=== PATIENT | male | born 2000 | race Caucasian/White ===

== ENCOUNTER 2021-06-20 16:48 | Emergency (ER) | payer OTHER, SELFPAY ==
[2021-06-20 16:49] VITALS: BP 149/74; PULSE 103; RESP 16; TEMP 36.1; O2SAT 95; BMI 29.5
--- NOTE | 2021-06-20 18:30 | EKG12_ITS ---
Test Reason : CP Blood Pressure : / mmHG Vent. Rate : 107 BPM Atrial Rate : 107 BPM P-R Int : 126 ms QRS Dur : 080 ms QT Int : 338 ms P-R-T Axes : 027 007 033 degrees QTc Int : 451 ms Sinus tachycardia Nonspecific T wave abnormality Confirmed by REBECCA JOSHUA, IRENE ([id number]), newspaper or periodical editor AMBER YORK ([id number]) on 06/22/2021 11:07:11 AM Referred By: DAVID/EITAN Confirmed By:IRENE FERNANDEZ MD
--- NOTE | 2021-06-20 18:44 | EX.ED.DYSGE1 ---
HPI History of Present Illness Chief Complaint: Palpitations Informant: patient Onset/Context/Timing Onset: Today Narrative Narrative: Patient presents secondary to feeling like his heart is being squeezed and shortness of breath. He had intermittent symptoms throughout the day, but states that started around 11 AM and resolved while he was sitting in the waiting room waiting to be evaluated. Nursing documents intermittent fast heart rate but he denies that to me. He is also concerned about a lump in his left axilla that he has noted over the last 2 weeks and is concerned he may have cancer. [facility] Medical History Anxiety and depression Allergy/AdvReac Type Severity Reaction Status Date / Time No Known Allergies Allergy Verified 06/20/21 16:51 Social History Smoking Status: Never smoker ROS ROS ED Constitutional Constitutional ED: Denies chills or fever(s) Eyes Eyes: Denies change in vision ENT ENT ED: Denies sore throat Cardiovascular Cardiovascular: Reports chest pain; Denies racing heartbeat Respiratory/Chest Respiratory/Chest: Reports dyspnea; Denies cough Gastrointestinal Gastrointestinal: Denies abdominal pain, nausea or vomiting Genitourinary Genitourinary ED: Denies dysuria Musculoskeletal Musculoskeletal: Reports myalgias; Denies back pain Integumentary Denies rash Neurologic Neurologic: Denies headache(s) or weakness Allergic/Immunologic Allergic/Immunologic ED: Denies urticaria EXAM Physical Exam Const Vital Signs: 06/20/21 16:49 06/20/21 18:47 06/20/21 20:41 Temperature 96.9 F L Temperature Source Temporal Pulse Rate 103 H 93 Respiratory Rate 16 16 Respiratory Effort Normal Blood Pressure 149/74 H 139/89 H Blood Pressure Mean 99 Pulse Ox 95 98 Oxygen Delivery Method Room Air Positive well nourished and well developed General Appearance ED: well developed HEENT Reports moist mucous membranes Eyes PERRL and EOMs intact bilaterally Neck supple Chest Wall inspection of chest normal and palpation of chest normal Resp normal respiratory effort and clear to auscultation bilaterally Cardio regular rate and regular rhythm GI normal to inspection, nondistended, normoactive bowel sounds and non-tender Palpation: soft Extremity Extremity Narrative: Small nodule noted in the left axilla that feels like a clogged oil gland, potentially a forming abscess. No overlying skin change. Neuro oriented x3 Sensorium / Orientation: alert Psych mental status grossly normal Skin no rashes or lesions noted MDM MDM MDM Narrative Medical decision making narrative: EKG, chest x-ray, lab work obtained. Lab Data Attestation: I reviewed the patient's lab results. Labs: Laboratory Results - last 24 hr 06/20/21 06/20/21 18:45 18:45 WBC 7.8 RBC 5.23 Hgb 15.4 Hct 45.4 MCV 86.8 MCH 29.4 MCHC 33.9 RDW Std Deviation 38.5 RDW Coeff of Everardo 12.2 Plt Count 336 MPV 9.6 Immature Gran % (Auto) 0.400 Neut % (Auto) 62.6 Lymph % (Auto) 28.6 Taylor % (Auto) 6.8 Eos % (Auto) 1.0 Baso % (Auto) 0.6 Absolute Neuts (auto) 4.9 Absolute Lymphs (auto) 2.23 Nucleated RBC % 0 Sodium 140 Potassium 3.9 Chloride 106 Carbon Dioxide 27.0 Anion Gap 7 BUN 7 Creatinine 0.87 Estim Creat Clear Calc 136.57 Est GFR (MDRD) Af Amer 144 Est GFR (MDRD) Non-Af 119 BUN/Creatinine Ratio 8.0 L Glucose 88 Calcium 9.4 Troponin I High Sens 4 TSH 1.57 Radiography Chest X-Ray - ED: 1 View, Read by ED Physician, Normal, Heart, Lungs and Mediastinum Diagnostic Testing: Clinical Impression(s) from Imaging Studies Chest X-Ray 06/20/21 19:28 IMPRESSION: Nonacute portable x-ray examination of the chest. Electronically Signed: Michael Cope MD (Brooks) at 19:38 EDT Reading Location ID and State: [facility] / [place] , Service support , EKG Initial EKG: Attestation: I personally reviewed and interpreted this EKG as follows: Interpretation: Sinus Tachycardia (Sinus tach at 107 with no acute ischemia.) Treatment and Re-Evaluation Narrative: Repeat evaluation patient continues to feel improved with no chest pressure or shortness of breath at this time. Lab work reviewed with him and unremarkable. Chest x-ray normal per my interpretation. Return instructions provided. Discharge Plan Triage Chief Complaint: Palpitations ED Provider: Alberta Osorio Dx/Rx/DC Orders Clinical Impression: Atypical chest pain Instructions: ED Chest Pain, Noncardiac Primary Care Provider: Care Physician,No Primary Referrals: [facility] [GROUP OF PHYSICIANS] - As Needed Care Physician,No Primary [Primary Care Provider] - Disposition Disposition: Home, Self Care Discharge Date/Time: 06/20/21 20:42
[2021-06-20 19:01] LABS: Absolute Lymphocyte Count 2.23 X10^3/uL (0.83-4.51); Absolute Neutrophil Count 4.9 X10^3/uL (2.0-7.7); Basophil# 0.05 X10^3/uL; Basophil% 0.6 % (0-1); Eosinophil# 0.08 X10^3/uL; Hematocrit 45.4 % (40-54); Hemoglobin 15.4 g/dL (13.0-16.5); Lymphocyte # 2.23 X10^3/ul (0.83-4.51); Lymphocyte % 28.6 % (19-41); Mean Corp Hgb Conc 33.9 g/dL (32-36); Mean Corpuscular Hgb 29.4 pg (27.0-32.0); Mean Corpuscular Volume 86.8 fL (80-94); Mean Platelet Vol. 9.6 fl (6.2-12.0); Monocyte# 0.53 X10^3/uL; Monocyte% 6.8 % (0-10); NRBC Flagged by Analyzer 0 % (0-5); Neutrophil # 4.88 X10^3/uL (2.7-7.7); Neutrophil % 62.6 % (47-70); Platelet Count 336 K/mm3 (150-450); RBC Distribution Width CV 12.2 % (11.6-14.6); RBC Distribution Width SD 38.5 fl (35.1-43.9); Red Blood Count 5.23 M/mm3 (4.6-6.2); White Blood Count 7.8 K/mm3 (4.4-11.0)
[2021-06-20 19:27] LABS: Anion Gap 7 (5-15); BUN 7 mg/dL (7-18); Calcium,Total 9.4 mg/dL (8.5-10.1); Chloride 106 mmol/L (98-107); Creatinine, Serum 0.87 mg/dL (0.70-1.30); EST Glomerular Filtration Rate 119 mL/min (>60); Est Glom Filt Rate - Afr Amer 144 mL/min (>60); Estimated Creatinine Clearance 136.57 ml/min; Glucose 88 mg/dL (74-106); Potassium 3.9 mmol/L (3.5-5.1); Sodium Level 140 mmol/L (136-145); Thyroid Stim Hormone (TSH) 1.57 uIU/mL (0.358-3.74); Troponin-I HS 4 pg/mL (3.0-78.0)
--- NOTE | 2021-06-20 19:28 | RAD_ITS ---
STUDY: X-RAY CHEST REASON FOR EXAM: Male, 20 years old. INTERMITTENT FAST HEART RATE SINCE 1100 TODAY. TECHNIQUE: AP COMPARISON: None. FINDINGS: EKG leads project over the chest. The lungs are clear and expanded. There is no demonstrated pleural abnormality. Normal size heart. Normal mediastinum and cosmo. Normal visualized pulmonary arteries. Normal visualized aortic arch and descending thoracic aorta. Normal visualized thoracic spine. Normal visualized ribs, clavicles, and shoulders. There is no demonstrated abnormality of the visualized soft tissue structures of the upper abdomen. RAD/Chest 1 View (Portable) IMPRESSION: Nonacute portable x-ray examination of the chest. Electronically Signed: Michael Cope MD (Brooks) at 19:38 EDT ,
--- NOTE | 2021-06-20 20:15 | CM.ED ---
SW Note Referral Source: Case Find Referral Reason: No PCP PAVEL met with patient along with PAVEL Oconnor Patient reports he has a PCP in [place]. Patient is a [employer] student. Patient reports he is going home soon. 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 Patient asked about psychiatrist and SW noted the [facility] Healthcare Directory with Dr. Mondragon. Patient said that he has psychiatrist in [place] and most likely when he speaks to him next he will speak to him about anxiety. PAVEL educated patient on [facility] PHP/IOP program through [facility] Behavioral Health. PAVEL provided patient with [facility] resource list, crisis phone number and pamphlet on [facility] IOP/PHP and business card for Cesia Childers. No other issues or concerns voiced. SW remains available. Plan: Resources Provided Anamaria AVALOS
[2021-06-20 20:41] VITALS: BP 139/89; PULSE 93; RESP 16; O2SAT 98
== END 2021-06-20 20:42 | disposition home or self-care (01) ==
PROVIDERS: Emergency Provider Emergency Medicine; Visit Provider Emergency Medicine
DX: R07.89 Other chest pain (principal); R00.2 Palpitations; R06.02 Shortness of breath
CPT/HCPCS: 71045; 80048; 84443; 84484; 85025; 93005; 99284; A4216

== ENCOUNTER 2024-04-12 16:34 | Emergency (ER) | payer OTHER, SELFPAY ==
[2024-04-12 16:35] VITALS: BP 153/111; PULSE 72; RESP 18; TEMP 35.5; O2SAT 97; BMI 35.4
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
== END 2024-04-12 17:11 | disposition home or self-care (01) ==
LOC: ED 17:04
PROVIDERS: Emergency Provider Emergency Medicine; Visit Provider Emergency Medicine
DX: S09.90XA Unspecified injury of head, initial encounter (principal); H92.02 Otalgia, left ear; V43.92XA Unspecified car occupant injured in collision with other type car in traffic accident, initial encounter
CPT/HCPCS: 99283